=== PATIENT | female | born 1990 | race Caucasian/White ===

== ENCOUNTER 2018-02-05 21:38 | Emergency (ER) | payer OTHER ==
[~2018-02-05] VITALS: Ht 167.6 cm; Wt 59.0 kg
[~2018-02-05 21:38] MED LIST: ARIP15TA3 PO; LITH300T PO
--- NOTE | 2018-02-05 21:45 | NUR ---
PT [facility] COMLAINING OF BURNING CHEST PAIN NON RADIATING FOR 2.5 WEEKS. PT ALSO COMPLAINING OF DRY COUGH AND MILD DIFFICULTY BREATHING. PT IS AAOX4 RESPIRATIONS EVEN AND UNLABORED. NO ACUTE DISTRESS NOTED AT THIS TIME. PT PLACED ON MONITOR.
--- NOTE | 2018-02-05 21:54 | NUR ---
MD AT BEDSIDE FOR EVALUATION
[2018-02-05] MEDS ORDERED: ALBUTEROL FS 2.5 MG/0.5 ML VIAL.NEB NEB ONE (22:00)
--- NOTE | 2018-02-05 22:02 | NUR ---
CALLED RT FOR BREATHING TREATMENT
[2018-02-05] MEDS ORDERED: ALBUTEROL FS 2.5 MG/3 ML VIAL.NEB ONE (22:55)
--- NOTE | 2018-02-05 23:02 | NUR ---
RT BEDSIDE FOR BREATHING TREATMENT
--- NOTE | 2018-02-05 23:13 | NUR ---
Patient discharged to home in stable condition. Written and verbal after care instructions given. Patient verbalizes understanding of instruction.
[2018-02-05 23:26] VITALS: BP 129/77
== END 2018-02-05 23:27 | disposition home or self-care (01) ==
LOC: ER 21:42
DX: J40 Bronchitis, not specified as acute or chronic (principal); F31.9 Bipolar disorder, unspecified; F17.200 Nicotine dependence, unspecified, uncomplicated; Z88.0 Allergy status to penicillin; Z79.899 Other long term (current) drug therapy
CPT/HCPCS: 71045; 94640; 99283; A4606; Z7610